=== PATIENT | male | born 1975 | race Caucasian/White ===

== ENCOUNTER 2016-07-15 14:33 | Emergency (ER) | payer OTHER ==
[~2016-07-15] VITALS: Ht 182.9 cm; Wt 288.0 kg
--- NOTE | ~2016-07-15 | EKG ---
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
[~2016-07-15 14:33] MED LIST: MEDROLDOSEPACK PO; VENTOLIN HFA 1818 GM INH; ZPAK PO
[2016-07-15 14:43] VITALS: BP 184/110
[2016-07-15] MEDS ORDERED: PRINIVIL20 MG PO (14:54)
[2016-07-15] MEDS ORDERED: KLONOPIN0.5 MG PO (14:55)
[2016-07-15] MEDS ORDERED: ZPAK PO (16:10)
[2016-07-15] MEDS ORDERED: TESSALON PERLE100 MG PO (16:10)
[2016-07-15] MEDS ORDERED: PREDNISONE 20 M20 MG PO (16:10)
[2016-07-15] MEDS ORDERED: VENTOLIN HFA 1818 GM INH (16:10)
== END 2016-07-15 16:38 | disposition home or self-care (01) ==
LOC: ER 14:33
DX: J45.901 Unspecified asthma with (acute) exacerbation (principal); J40 Bronchitis, not specified as acute or chronic; E66.01 Morbid (severe) obesity due to excess calories; I10 Essential (primary) hypertension; J18.9 Pneumonia, unspecified organism; F32.9 Major depressive disorder, single episode, unspecified; F10.99 Alcohol use, unspecified with unspecified alcohol-induced disorder

== ENCOUNTER 2017-03-05 16:43 | Emergency (ER) | payer OTHER ==
[~2017-03-05] VITALS: Ht 185.4 cm; Wt 294.8 kg
[2017-03-05 16:43] VITALS: BP 191/117
[~2017-03-05 16:43] MED LIST changes: +KLONOPIN0.5 MG PO; +PREDNISONE 20 M20 MG PO; +PRINIVIL20 MG PO; +TESSALON PERLE100 MG PO
[2017-03-05 17:19] LABS: ABSOLUTE NEUTROPHILS 5.6 thou/uL (1.4-8.2); BASOPHILS 1.4 % (0.0-2.0); EOSINOPHILS 2.7 % (0.0-3.0); HEMATOCRIT 40.3 % (42.0-52.0); HEMOGLOBIN 13.8 gm/dL (14.0-18.0); LYMPHOCYTES 24.7 % (24.0-44.0); MCH 28.6 pg (26.0-34.0); MCHC 34.1 g/dL (28.0-37.0); MCV 83.7 fL (80.0-100.0); MONOCYTES 8.8 % (1.0-8.0); PLATELET COUNT 181 thou/uL (150-400); POLYS 62.4 % (36.0-66.0); RBC 4.82 mil/uL (4.50-6.00); RDW 14.8 % (10.5-14.5); WBC 8.9 thou/uL (4.0-11.0)
[2017-03-05 17:20] LABS: MANUAL DIFF NO
[2017-03-05] MEDS ORDERED: NORCO 5-325 TA1 EACH PO (17:27)
[2017-03-05] MEDS ORDERED: BACTRIM DS TAB1 EACH PO (17:27)
[2017-03-05] MEDS ORDERED: IBUPROFEN 600600 M1 PO (17:27)
== END 2017-03-05 17:47 | disposition home or self-care (01) ==
LOC: ER 16:43
PROVIDERS: Nurse Practitioner
DX: L03.116 Cellulitis of left lower limb (principal); I10 Essential (primary) hypertension; E66.9 Obesity, unspecified; F32.9 Major depressive disorder, single episode, unspecified; Z68.45 Body mass index [BMI] 70 or greater, adult; Z85.820 Personal history of malignant melanoma of skin

== ENCOUNTER 2017-05-31 21:30 | Emergency (ER) | payer OTHER ==
[~2017-05-31] VITALS: Ht 185.4 cm; Wt 288.0 kg
[~2017-05-31 21:30] MED LIST changes: +BACTRIM DS TAB1 EACH PO; +IBUPROFEN 600600 M1 PO; +NORCO 5-325 TA1 EACH PO
[2017-05-31] MEDS ORDERED: HYDROCODONE-AP1 EAC6 PO (21:58)
[2017-05-31] MEDS ORDERED: SKELAXIN 800 M800 M1 PO (21:58)
[2017-05-31] MEDS ORDERED: MOBIC15 MG PO (22:56)
[2017-05-31 23:48] VITALS: BP 160/90
== END 2017-05-31 23:24 | disposition home or self-care (01) ==
LOC: ER 21:30
DX: S39.012A Strain of muscle, fascia and tendon of lower back, initial encounter (principal); I10 Essential (primary) hypertension; E66.9 Obesity, unspecified; F32.9 Major depressive disorder, single episode, unspecified; Z85.820 Personal history of malignant melanoma of skin; Z68.45 Body mass index [BMI] 70 or greater, adult; X58.XXXA Exposure to other specified factors, initial encounter; Y93.89 Activity, other specified; Y92.89 Other specified places as the place of occurrence of the external cause; Y99.8 Other external cause status

== ENCOUNTER 2018-07-08 22:01 | Emergency (ER) | payer OTHER ==
[~2018-07-08] VITALS: Ht 182.9 cm; Wt 324.3 kg
[~2018-07-08 22:01] MED LIST changes: +HYDROCODONE-AP1 EAC6 PO; +MOBIC15 MG PO; +SKELAXIN 800 M800 M1 PO
[2018-07-08 22:25] LABS: ABSOLUTE NEUTROPHILS 10.1 thou/uL (1.4-8.2); BASOPHILS 0.8 % (0.0-2.0); EOSINOPHILS 1.1 % (0.0-3.0); HEMOGLOBIN 14.9 gm/dL (14.0-18.0); LYMPHOCYTES 13.3 % (24.0-44.0); MCH 28.4 pg (26.0-34.0); MCHC 33.8 g/dL (28.0-37.0); MCV 84.2 fL (80.0-100.0); MONOCYTES 7.6 % (1.0-8.0); PLATELET COUNT 238 thou/uL (150-400); POLYS 77.2 % (36.0-66.0); RBC 5.22 mil/uL (4.50-6.00); RDW 15.2 % (10.5-14.5); WBC 13.1 thou/uL (4.0-11.0)
[2018-07-08 22:32] LABS: ANION GAP 6 mmol/L (7-16); BUN 17 mg/dL (7-18); CALCIUM 9.2 mg/dL (8.5-10.1); CHLORIDE 101 mmol/L (98-107); CO2 35 mmol/L (21-32); GLUCOSE 100 mg/dL (74-106); POTASSIUM 4.3 mmol/L (3.5-5.1); SODIUM 142 mmol/L (136-145)
[2018-07-08 22:41] LABS: TROPONIN-I <0.06 ng/mL (<0.06)
[2018-07-08] MEDS ORDERED: PROTONIX40 M1 PO (23:12)
[2018-07-08 23:52] VITALS: BP 187/100
--- NOTE | 2018-07-09 08:12 | EKG ---
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
== END 2018-07-08 23:52 | disposition home or self-care (01) ==
LOC: ER 22:01
PROVIDERS: Emergency Medicine
DX: I10 Essential (primary) hypertension (principal); R07.89 Other chest pain; F32.9 Major depressive disorder, single episode, unspecified; E66.9 Obesity, unspecified; Z68.45 Body mass index [BMI] 70 or greater, adult

== ENCOUNTER 2018-12-08 02:47 | Emergency (ER) | payer OTHER ==
[~2018-12-08] VITALS: Ht 182.9 cm; Wt 288.0 kg
[~2018-12-08 02:47] MED LIST changes: +PROTONIX40 M1 PO
[2018-12-08] MEDS ORDERED: HYDROCORTISONE30 G9 RECTAL (03:38)
[2018-12-08] MEDS ORDERED: ANUSOL-HC25 MG RECTAL (03:38)
[2018-12-08] MEDS ORDERED: TRANZAREL120 ML TOP (03:38)
[2018-12-08 05:03] VITALS: BP 167/99
== END 2018-12-08 05:24 | disposition home or self-care (01) ==
LOC: ER 02:47
DX: K60.2 Anal fissure, unspecified (principal); L25.3 Unspecified contact dermatitis due to other chemical products; K62.89 Other specified diseases of anus and rectum; I10 Essential (primary) hypertension; F32.9 Major depressive disorder, single episode, unspecified; E66.9 Obesity, unspecified; Z68.45 Body mass index [BMI] 70 or greater, adult

== ENCOUNTER 2020-06-18 23:06 | Emergency (ER) | payer OTHER ==
[~2020-06-18] VITALS: Ht 185.4 cm; Wt 294.8 kg
[~2020-06-18 23:06] MED LIST changes: +ANUSOL-HC25 MG RECTAL; +HYDROCORTISONE30 G9 RECTAL; +TRANZAREL120 ML TOP
[2020-06-18 23:09] VITALS: BP 194/123
[2020-06-18] MEDS ORDERED: OMEPRAZOLE 20 M20 M1 PO (23:29)
[2020-06-18] MEDS ORDERED: OMEPRAZOLE40 MG PO (23:30)
[2020-06-18] MEDS ORDERED: HYDROCHLOROTHIA25 M2 PO (23:30)
[2020-06-18 23:46] LABS: ABSOLUTE NEUTROPHILS 4.8 thou/uL (1.4-8.2); BASOPHILS 1.3 % (0.0-2.0); EOSINOPHILS 2.5 % (0.0-3.0); HEMATOCRIT 41.3 % (42.0-52.0); HEMOGLOBIN 13.9 gm/dL (14.0-18.0); LYMPHOCYTES 27.7 % (24.0-44.0); MCH 28.7 pg (26.0-34.0); MCHC 33.7 g/dL (28.0-37.0); MCV 85.1 fL (80.0-100.0); MONOCYTES 8.6 % (1.0-8.0); PLATELET COUNT 229 thou/uL (150-400); POLYS 59.9 % (36.0-66.0); RBC 4.85 mil/uL (4.50-6.00); RDW 14.2 % (10.5-14.5)
[2020-06-18 23:50] LABS: ANION GAP 6 mmol/L (7-16); BUN 21 mg/dL (7-18); CALCIUM 9.6 mg/dL (8.5-10.1); CHLORIDE 102 mmol/L (98-107); CO2 32 mmol/L (21-32); CREATININE 1.4 mg/dL (0.7-1.3); GLUCOSE 90 mg/dL (74-106); POTASSIUM 3.9 mmol/L (3.5-5.1); SODIUM 140 mmol/L (136-145)
[2020-06-18 23:55] LABS: APTT 26.2 Seconds (24.5-32.8); PROTIME 10.7 Seconds (9.3-11.4)
[2020-06-19 00:02] LABS: ALBUMIN 3.6 g/dL (3.4-5.0); MAGNESIUM 2.1 mg/dL (1.8-2.4); SGOT 29 U/L (15-37); SGPT 43 U/L (30-65); TOTAL BILIRUBIN 0.4 mg/dL (0.2-1.0); TOTAL PROTEIN 7.3 g/dL (6.4-8.2); TROPONIN-I <0.06 ng/mL (<0.06)
[2020-06-19 04:55] LABS: AMP/METHAMP Negative (Negative); BARBITURATES Negative (Negative); BENZODIAZEPINES Negative (Negative); COCAINE Negative (Negative); METHADONE Negative (Negative); OPIATES Negative (Negative); PCP Negative (Negative)
[2020-06-19 05:51] LABS: CHOLESTEROL 219 mg/dL (<200); HDL CHOLESTEROL 37 mg/dL (>40); LDL CHOLESTEROL 170 mg/dL (<100); TC:HDL 5.9 Ratio (Not establshd); TRIGLYCERIDE 62 mg/dL (<150); VLDL 12 mg/dL (<40)
[2020-06-19 05:52] LABS: SERUM ASSESSMENT Clear
[2020-06-19 12:42] VITALS: BP 143/86
[2020-06-20 02:05] LABS: GLYCOHEMOGLOBIN (HGB A1C) 4.9 % (4.8-5.6)
--- NOTE | 2020-06-27 07:54 | EKG ---
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 Dancer: ROSIE : 1975 Requested By: Jose Boudreaux Order Number: [id number] MD: Romel Edge Measurements Intervals [place] Rate: 73 P: [place]: QRS: 74 QRSD: 115 T: 69 QT: 409 QTc: 451 Interpretive Statements NSR Nonspecific intraventricular conduction delay Baseline wander in lead(s) V2 Compared to ECG 07/08/2018 22:07:39 Intraventricular conduction delay now present Electronically Signed On 06-20-2020 7:21:25 ANESTHESIOLOGIST PHYSICIAN by Romel Edge [email or web address] <ELECTRONICALLY SIGNED> By: Romel Edge MD, [facility] 06/20/20 0721 2318 17 Romel Edge MD, FACC /EPI
== END 2020-06-19 12:42 | disposition still patient (30) ==
LOC: ER 23:06 → EROBS 06-19 01:13
PROVIDERS: Emergency Medicine; Nurse Practitioner Family
DX: R07.89 Other chest pain (principal); E66.01 Morbid (severe) obesity due to excess calories; N17.9 Acute kidney failure, unspecified; K60.2 Anal fissure, unspecified; F41.9 Anxiety disorder, unspecified; J45.909 Unspecified asthma, uncomplicated; M54.9 Dorsalgia, unspecified; I10 Essential (primary) hypertension; F32.9 Major depressive disorder, single episode, unspecified; K21.9 Gastro-esophageal reflux disease without esophagitis; Z68.41 Body mass index [BMI] 40.0-44.9, adult; Z79.899 Other long term (current) drug therapy; Z68.45 Body mass index [BMI] 70 or greater, adult; Z85.820 Personal history of malignant melanoma of skin